=== PATIENT | male | born 1965 | race Caucasian/White ===

== ENCOUNTER 2017-10-12 13:09 | Outpatient (CLI) | payer OTHER ==
[2017-10-12 14:24] LABS: PTT 26.8 SEC (22.9-36.1); Prothrombin Time 11.9 SEC (12.0-14.7)
[2017-10-12 14:33] LABS: Mean Platelet Volume 7.2 fL (7.4-10.4); Red Blood Cell (RBC) Count 5.12 mill/uL (4.70-6.10); White Blood Cell (WBC) Count 4.2 thou/uL (4.8-10.8)
[2017-10-12 14:40] LABS: Anion Gap 27 mmol/L (10-20); BUN (Urea Nitrogen) 12 mg/dL (8.4-25.7); Calc. Creatinine Clearance 0 mL/min (70-130); Calcium 9.6 mg/dL (7.8-10.44); Carbon Dioxide 9 mmol/L (22-29); Chloride 94 mmol/L (98-107); Estimated GFR-MDRD 77
--- NOTE | 2017-10-13 07:34 | EKG ---
Test Reason : Blood Pressure : / mmHG Vent. Rate : 092 BPM Atrial Rate : 092 BPM P-R Int : 154 ms QRS Dur : 084 ms QT Int : 372 ms P-R-T Axes : 031 026 -14 degrees QTc Int : 460 ms Normal sinus rhythm Low voltage QRS Cannot rule out Anterior infarct , age undetermined Nonspecific ST-T changes Abnormal ECG No previous ECGs available Confirmed by DR. Joseph SIBLEY ([id number]) on 10/13/2017 7:33:52 AM Referred By: BUD Confirmed By:DR. Joseph SIBLEY
== END 2017-10-12 13:10 | disposition home or self-care (01) ==
LOC: LABBT 13:09
PROVIDERS: ATTEND Orthopaedic Surgery
DX: Z01.818 Encounter for other preprocedural examination (principal); M16.12 Unilateral primary osteoarthritis, left hip
CPT/HCPCS: 80048; 85027; 85610; 85730; 86850; 86900; 86901; 87081; 93005; 93010

== ENCOUNTER 2017-10-26 13:52 | Emergency (ER) | payer OTHER, SELFPAY ==
[2017-10-26 14:56] LABS: #Eosinphils 0.1 thou/uL (0.0-0.7); #Lymphocytes 0.8 thou/uL (1.20-3.40); #Monocytes 0.2 thou/uL (0.11-0.59); #Neutrophils 2.1 thou/uL (1.40-6.50); %Basophils 0.8 % (0.0-1.0); %Eosinophils 1.9 % (0.0-10.0); %Monocytes 7.4 % (0.0-10.0); %Neutrophils 65.9 % (42.0-75.0); Hemoglobin 14.5 g/dL (14.0-18.0); Mean Corpuscular HGB CONC 34.9 g/dL (32.0-36.0); Mean Corpuscular Hemoglobin 32.1 pg (27.0-31.0); Mean Corpuscular Volume 91.8 fl (80.0-94.0); Platelet Count 252 thou/uL (130-400); RBC Distribution Width 12.5 % (11.5-14.5); Red Blood Cell (RBC) Count 4.51 mill/uL (4.70-6.10); White Blood Cell (WBC) Count 3.2 thou/uL (4.8-10.8)
[2017-10-26 15:24] LABS: ALT (SGPT) 57 U/L (8-55); AST (SGOT) 15 U/L (5-34); Albumin 4.1 g/dL (3.5-5.0); Alkaline Phosphatase 89 U/L (40-150); Anion Gap 16 mmol/L (10-20); BUN (Urea Nitrogen) 14 mg/dL (8.4-25.7); Bilirubin, Total 0.7 mg/dL (0.2-1.2); Calc. Creatinine Clearance 0 mL/min (70-130); Calcium 10.1 mg/dL (7.8-10.44); Carbon Dioxide 20 mmol/L (22-29); Chloride 97 mmol/L (98-107); Estimated GFR-MDRD 90; Globulin 3.7 g/dL (2.4-3.5); Glucose 369 mg/dL (70-105); Potassium 4.3 mmol/L (3.5-5.1); Protein, Total 7.8 g/dL (6.0-8.3); Sodium 129 mmol/L (136-145)
[2017-10-26 15:33] LABS: Bilirubin Negative (Negative); Blood, Urine Negative (Negative); Clarity CLEAR (Clear); Glucose, Urine (Dipstick) >=1000 mg/dL (Negative); Leukocyte Negative (Negative); Nitrite Negative (Negative); Protein, Urine (Dipstick) Trace mg/dL (Neg-Trace); Specific Gravity, Urine 1.043 (1.002-1.036); Urobilinogen 0.2 mg/dL (0.2-1.0)
[2017-10-26 15:50] LABS: Base Excess-Venous -1.4 mmol/L (-30.0-30.0); Bicarbonate (HCO3v) 21.7 mmol/L (1.0-85.0); CO2 Tension (PvCO2) 31.6 mmHg (41.0-51.0); Calcium, Ionized 1.14 mmol/L (1.12-1.32); Hemoglobin - Calc 14.8 g/dL (12.0-18.0); O2 Tension (PvO2) 109.4 mmHg (35.0-45.0); Potassium 4.3 mmol/L (3.4-4.7); T. Carbon Dioxide 22.7 mmol/L (1.0-85.0); pH (Venous) 7.445 (7.35-7.45); vO2 Saturation-calc 98.5 % (0.0-100.0)
== END 2017-10-26 16:55 | disposition home or self-care (01) ==
LOC: ERS 13:52
DX: R73.9 Hyperglycemia, unspecified (principal); Z79.899 Other long term (current) drug therapy
CPT/HCPCS: 36416; 80053; 81003; 82330; 82803; 85025; 96360

== ENCOUNTER 2018-04-21 06:12 | Day surgery (SDC) | payer OTHER, SELFPAY ==
[2018-04-17 16:40] VITALS: BMI 30.9
[2018-04-21] MEDS ORDERED: HOLD HYPOGLYCEMIC MEDS AM OF CATH FS SCH (06:30)
[2018-04-21] MEDS ORDERED: Diazepam 5 MG TAB PO SCH (06:30)
[2018-04-21] MEDS ORDERED: Lidocaine 1% (PF) 30 ML VIAL ONE (06:39)
[2018-04-21 06:51] LABS: #Eosinphils 0.1 thou/uL (0.0-0.7); #Lymphocytes 1.5 thou/uL (1.20-3.40); #Monocytes 0.5 thou/uL (0.11-0.59); #Neutrophils 4.1 thou/uL (1.40-6.50); %Basophils 0.1 % (0.0-1.0); %Eosinophils 2.1 % (0.0-10.0); %Lymphocytes 24.2 % (21.0-51.0); %Monocytes 7.8 % (0.0-10.0); %Neutrophils 65.8 % (42.0-75.0); Hemoglobin 14.1 g/dL (14.0-18.0); Mean Corpuscular HGB CONC 34.4 g/dL (32.0-36.0); Mean Corpuscular Hemoglobin 30.4 pg (27.0-31.0); Mean Corpuscular Volume 88.2 fL (78.0-98.0); Platelet Count 245 thou/uL (130-400); Red Blood Cell (RBC) Count 4.63 mill/uL (4.70-6.10); White Blood Cell (WBC) Count 6.2 thou/uL (4.8-10.8)
[2018-04-21] MEDS ORDERED: Dextrose 50% Abboject 50 ML SYRINGE ONE (06:55)
[2018-04-21] MEDS ORDERED: Diazepam 5 MG TAB ONE (06:55)
[2018-04-21 07:08] LABS: PTT 30.5 SEC (22.9-36.1); Prothrombin Time 13.5 SEC (12.0-14.7)
[2018-04-21 07:14] LABS: ALT (SGPT) 22 U/L (8-55); AST (SGOT) 16 U/L (5-34); Albumin 4.2 g/dL (3.5-5.0); Alkaline Phosphatase 63 U/L (40-150); Anion Gap 12 mmol/L (10-20); BUN (Urea Nitrogen) 20 mg/dL (8.4-25.7); Calc. Creatinine Clearance 156 mL/min (70-130); Calcium 9.2 mg/dL (7.8-10.44); Carbon Dioxide 22 mmol/L (22-29); Cardiac Risk 5.6 (Less than 4.5); Chloride 106 mmol/L (98-107); Cholesterol 196 mg/dl (< 200 Desired); Estimated GFR-MDRD Greater than 90; Globulin 3.2 g/dL (2.4-3.5); Glucose 109 mg/dL (70-105); HDL Cholesterol 35 mg/dL (>60 Neg Risk); LDL Cholesterol, Calculated 139 mg/dL; Potassium 3.8 mmol/L (3.5-5.1); Protein, Total 7.4 g/dL (6.0-8.3); Sodium 136 mmol/L (136-145); Triglycerides 109 mg/dL (Less than 150)
[2018-04-21] MEDS ORDERED: Midazolam HCl 2 mg/2 ml Vial ONE (08:08)
[2018-04-21] MEDS ORDERED: Acetaminophen/Codeine 30-300mg Tablet ONE ×2 (09:48)
--- NOTE | 2018-04-21 12:33 | DIS ---
HISTORY OF PRESENT ILLNESS: The patient is a pleasant 52-year-old gentleman who presented about pre operative evaluation. The patient underwent a Cardiolite stress test which revealed him to have a no rmal left ventricular ejection fraction 59% with possible inferior ischemia or prior to undergoing eid rgery. The patient was admitted for further evaluation. HOSPITAL COURSE: On 04/21/2018 the patient underwent a left heart catheterization. He was found to have normal left ventricular systolic function with estimated ejection fraction of 50-55%. The left anterior descending, left circumflex and right coronary artery were free of significant disease. Con sequently, the patient was felt to be at low risk for undergoing surgery. His discharge medications will include aspirin 81 daily, glipizide 5 daily, Naprosyn 500 b.i.d., tram adol 50 q.i.d., metformin 500 b.i.d. which will be held for 2 days.
--- NOTE | 2018-04-21 17:07 | EKG ---
Test Reason : PREOP Blood Pressure : / mmHG Vent. Rate : 081 BPM Atrial Rate : 081 BPM P-R Int : 166 ms QRS Dur : 082 ms QT Int : 414 ms P-R-T Axes : 032 016 022 degrees QTc Int : 480 ms Normal sinus rhythm Prolonged QT Abnormal ECG When compared with ECG of 12-OCT-2017 14:04, Nonspecific T wave abnormality no longer evident in Lateral leads Confirmed by DR. Joseph SIBLEY ([id number]) on 04/21/2018 5:06:35 PM Referred By: SOURAV Confirmed By:DR. Joseph SIBLEY
[2018-04-21] MEDS ORDERED: DC ENOXAPARIN NIGHT BEFORE CATH FS SCH (22:00)
== END 2018-04-21 13:10 | disposition home or self-care (01) ==
LOC: CCL 06:12 → EDSTATUS 16:14
PROVIDERS: ATTEND Internal Medicine Cardiovascular Disease
DX: R94.39 Abnormal result of other cardiovascular function study (principal)
CPT/HCPCS: 80053; 80061; 85025; 85610; 93005; 93010; 93458; 99152; C1769; J1644; J2001; J2250

== ENCOUNTER 2018-06-01 09:18 | Outpatient (CLI) | payer OTHER ==
[2018-06-01 10:14] LABS: Hemoglobin 16.3 g/dL (14.0-18.0); Mean Corpuscular HGB CONC 35.4 g/dL (32.0-36.0); Mean Corpuscular Hemoglobin 31.1 pg (27.0-31.0); Mean Corpuscular Volume 87.9 fL (78.0-98.0); Mean Platelet Volume 5.7 fL (7.4-10.4); Platelet Count 269 thou/uL (130-400); RBC Distribution Width 13.1 % (11.5-14.5); Red Blood Cell (RBC) Count 5.24 mill/uL (4.70-6.10); White Blood Cell (WBC) Count 11.3 thou/uL (4.8-10.8)
[2018-06-01 10:21] LABS: INR-International Normal Ratio 0.9; Prothrombin Time 11.9 SEC (12.0-14.7)
[2018-06-01 10:31] LABS: Anion Gap 15 mmol/L (10-20); BUN (Urea Nitrogen) 24 mg/dL (8.4-25.7); Calc. Creatinine Clearance 0 mL/min (70-130); Calcium 9.9 mg/dL (7.8-10.44); Carbon Dioxide 22 mmol/L (22-29); Chloride 102 mmol/L (98-107); Estimated GFR-MDRD Greater than 90; Glucose 117 mg/dL (70-105); Potassium 4.3 mmol/L (3.5-5.1); Sodium 135 mmol/L (136-145)
--- NOTE | 2018-06-02 06:12 | EKG ---
Test Reason : Blood Pressure : / mmHG Vent. Rate : 074 BPM Atrial Rate : 074 BPM P-R Int : 138 ms QRS Dur : 078 ms QT Int : 388 ms P-R-T Axes : 049 077 048 degrees QTc Int : 430 ms Normal sinus rhythm Anteroseptal infarct , age undetermined Abnormal ECG When compared with ECG of 21-APR-2018 06:51, Anteroseptal infarct is now Present /vs poor R wave progression. Confirmed by TATY WALLS ([id number]) on 06/02/2018 6:11:52 AM Referred By: BUD Confirmed By:TATY WALLS
== END 2018-06-01 09:19 | disposition home or self-care (01) ==
LOC: LABBT 09:18
PROVIDERS: ATTEND Orthopaedic Surgery
DX: Z01.818 Encounter for other preprocedural examination (principal); M16.12 Unilateral primary osteoarthritis, left hip
CPT/HCPCS: 80048; 85027; 85610; 86850; 86900; 86901; 87081; 93005; 93010

== ENCOUNTER 2018-06-01 14:00 | Inpatient (IN) | payer OTHER ==
[2018-06-01 09:35] VITALS: BMI 30.9
[2018-06-06] MEDS ORDERED: CEFAZOLIN/Water 2 GM/20 ML SYRINGE ONE (10:06)
[2018-06-06] MEDS ORDERED: Neomycin-Polymyxin 1 ML AMP ONE (11:26)
[2018-06-06] MEDS ORDERED: Midazolam HCl 2 mg/2 ml Vial ONE (11:41)
[2018-06-06] MEDS ORDERED: Fentanyl 100 MCG/2 ML VIAL ONE ×3 (11:41→12:47)
[2018-06-06] MEDS ORDERED: Bupivacaine/Epinephrine 0.25% 30 ML VIAL ONE (12:10)
[2018-06-06] MEDS ORDERED: diphenhydrAMINE 25 MG CAP PO PRN ×2 (12:15→13:56)
[2018-06-06] MEDS ORDERED: diphenhydrAMINE 50 MG/ML VIAL IM PRN (12:15)
[2018-06-06] MEDS ORDERED: Naloxone HCl 0.4 mg/ml Vial IV PRN (12:15)
[2018-06-06] MEDS ORDERED: Zolpidem Tartrate 5 MG TAB PO PRN ×2 (12:15→13:56)
[2018-06-06] MEDS ORDERED: Ondansetron HCl/PF 4 MG/2 ML Vial IVP PRN ×3 (12:15→13:57)
[2018-06-06] MEDS ORDERED: Hydrocerin (Eucerin) Cream 120 gm Jar TOP PRN (12:15)
[2018-06-06] MEDS ORDERED: Bupivacaine 0.25% 10 ML VIAL EPIDURAL PRN (12:15)
[2018-06-06] MEDS ORDERED: fentaNYL Citrate/PF 1,250 MCG, Bupivacaine 25 ML in Sodium Chloride 0.9% 250 ML 200 ML EPIDURAL SCH (12:15)
[2018-06-06] MEDS ORDERED: diphenhydrAMINE 50 MG/ML VIAL IVP PRN (12:15)
[2018-06-06] MEDS ORDERED: Naloxone HCl 0.4 mg/ml Vial IVP PRN (12:15)
[2018-06-06] MEDS ORDERED: Promethazine HCl 25 MG/ML VIAL IM PRN ×3 (12:15→13:57)
[2018-06-06] MEDS ORDERED: Promethazine HCl 25 MG SUPP PR PRN (12:15)
[2018-06-06] MEDS ORDERED: Acetaminophen 325 MG TAB PO PRN (13:56)
[2018-06-06] MEDS ORDERED: traMADol HCl 50 MG TAB PO PRN (13:56)
[2018-06-06] MEDS ORDERED: HYDROcodone/Acetaminophen 10/325 mg Tablet PO PRN ×2 (13:56)
[2018-06-06] MEDS ORDERED: Morphine 4 MG/ML VIAL SLOW IVP PRN (13:56)
[2018-06-06] MEDS ORDERED: Promethazine HCl 25 MG/ML VIAL SLOW IVP PRN (13:57)
[2018-06-06] MEDS ORDERED: PHENYLEPHRINE-NS 100 MCG/ML 10 ML SYRINGE ONE (13:59)
[2018-06-06] MEDS ORDERED: PROPOFOL 200 MG/20 ML VIAL ONE (13:59)
[2018-06-06] MEDS ORDERED: Ondansetron HCl/PF 4 MG/2 ML Vial ONE (13:59)
[2018-06-06] MEDS ORDERED: Glycopyrrolate 0.2 MG/ML 5 ML SYRINGE ONE (13:59)
--- NOTE | 2018-06-06 14:25 | OP ---
DATE OF OPERATION: 06/06/2018 PREOPERATIVE DIAGNOSIS: Severe arthritis of the left hip. POSTOPERATIVE DIAGNOSIS: Severe arthritis of the left hip. PROCEDURE: Left total hip replacement. SURGEON: Valentín Llamas M.D. ANESTHESIA: General. TECHNIQUE: The patient was given an indwelling epidural catheter prior to surgery. He was given pre operative IV antibiotics, taken to the operating room and placed in supine position. Satisfactory ge neral anesthesia was performed. The patient was then placed in the right lateral decubitus position. The left hip and lower extremity were then sterilely prepped and draped in usual fashion. A longit udinal incision was made over the lateral aspect of the hip, centered over the greater trochanter. I ncision was approximately 8 inches in length. Anteromedial approach was made to the hip joint. Ante rior capsule was excised. Posterior capsule was incised. The femoral neck was cut with an oscillati ng saw and then removed with an osteotome. The femoral head had significant deformity, was very flat tened and had no articular cartilage and large osteophytes. There were large osteophytes on the acet abulum. The soft tissue was cleaned from around the acetabulum. Rongeur was used to remove most of the osteophytes and the acetabulum was then sequentially reamed up to 54 mm. A [place] 3-hole 56 mm acetabular shell was then impacted into the acetabulum after the acetabulum was copiously irri gated with antibiotic solution and then bone graft was placed. The acetabulum was very secure. A 6. 5 cancellous bone screw was then placed to also help secure the acetabular shell even more. He had v tavon good fixation. A +4, 10-degree acetabular liner was then impacted in place and attention was the n turned to the proximal femur. A box osteotome was utilized and then hand Charnley reamer and then the canal was sequentially reamed up to 16 mm. It was then sequentially rasped up to 16 mm and calca r reamer was utilized. Different trials were used. The ultimate trial was a +1.5 neck with a 36 mm head. This allowed for good range of motion of the hip and good stability. The trial was removed fr om the proximal femur. The hip area was then copiously irrigated again with antibiotic solution and the high-speed pipelayer. The cementless [place] femoral stem size 16 standard collar was impacted in to the proximal femur with excellent fit. The +1.5 neck with 36 mm femoral head was impacted over th e [place] taper and the hip joint was then reduced, again placed through a range of motion and is very stable. The wound again was irrigated and closed using #2 Vicryl for the anterior abductor muscles a nd then #2 Vicryl for the iliotibial band, 0 Vicryl for the fat and subcutaneous tissue and the skin was closed with skin long. Sterile dressing was applied. The patient was then awakened, extubate d and transferred to recovery room in stable condition. ESTIMATED BLOOD LOSS: 200 mL COMPLICATIONS: None.
--- NOTE | 2018-06-06 15:00 | RAD ---
LEFT HIP TWO VIEWS: History: Left hip surgery. FINDINGS: Total hip prosthesis is in place without perihardware lucency. No acute fracture, dislocation, or agg ressive osseous erosions. Skin long and soft tissue gas. IMPRESSION: Left hip prosthesis is in good radiographic position. POS: [facility]
[2018-06-06] MEDS ORDERED: Albumin 5% 500 ML ONE (15:09)
[2018-06-06] MEDS ORDERED: CEFAZOLIN/Water 2 GM/20 ML SYRINGE SLOW IVP SCH (18:00)
[2018-06-06] MEDS: Ketorolac Tromethamine 30 MG/ML VIAL IVP SCH ×3 (18:38→22:21)
[2018-06-06] MEDS: metFORMIN 500 MG TAB PO SCH (18:45)
[2018-06-06] MEDS: Ferrous Gluconate 324 MG TAB PO SCH (20:37)
[2018-06-06] MEDS: CEFAZOLIN/Water 2 GM/20 ML SYRINGE SLOW IVP SCH (20:37)
[2018-06-06] MEDS: Aspirin 325 MG TAB PO SCH (20:37)
[2018-06-06] MEDS: Senokot S 8.6-50 MG TAB PO SCH (20:38)
[2018-06-07] MEDS: CEFAZOLIN/Water 2 GM/20 ML SYRINGE SLOW IVP SCH (04:04)
[2018-06-07 04:34] LABS: Hemoglobin 11.4 g/dL (14.0-18.0); Mean Corpuscular HGB CONC 35.6 g/dL (32.0-36.0); Mean Platelet Volume 5.8 fL (7.4-10.4); Platelet Count 191 thou/uL (130-400); RBC Distribution Width 12.8 % (11.5-14.5); Red Blood Cell (RBC) Count 3.56 mill/uL (4.70-6.10); White Blood Cell (WBC) Count 6.6 thou/uL (4.8-10.8)
[2018-06-07] MEDS: Ketorolac Tromethamine 30 MG/ML VIAL IVP SCH ×3 (06:11→22:09)
[2018-06-07] MEDS ORDERED: Aspirin 81 mg Enteric Coated Tablet PO SCH (09:00)
[2018-06-07] MEDS: glipiZIDE 5 MG TAB PO SCH (09:59)
[2018-06-07] MEDS: Multivitamin W/ Minerals 1 TAB PO SCH (09:59)
[2018-06-07] MEDS: Ferrous Gluconate 324 MG TAB PO SCH ×2 (09:59→20:57)
[2018-06-07] MEDS: Senokot S 8.6-50 MG TAB PO SCH ×2 (09:59→20:57)
[2018-06-07] MEDS: metFORMIN 500 MG TAB PO SCH ×2 (09:59→18:00)
[2018-06-07] MEDS: Aspirin 325 MG TAB PO SCH ×2 (09:59→20:57)
[2018-06-07] MEDS ORDERED: Dextrose 50% Abboject 50 ML SYRINGE SLOW IVP PRN (12:54)
[2018-06-07] MEDS ORDERED: Dextrose 5% in Water 1,000 ML IV PRN (12:54)
[2018-06-07] MEDS ORDERED: HumaLOG 300 UNITS/3 ML VIAL SC PRN ×2 (12:54)
--- NOTE | 2018-06-07 14:57 | PDOC.PN ---
- Subjective Encounter Start Date: 06/07/18 Encounter Start Time: 13:35 follow up for DM2, hx CAD, HLD, depression, s/p left GRACE, POD1 walking well, epidural still in. no N/V/D/C, no CP or sOB, eating well. No f/C, no CP or sOB All systems reviewed and neg x as above - Objective MAR Reviewed: Yes Vital Signs & Weight: Vital Signs (12 hours) Temp Pulse Resp BP BP Pulse Ox 06/07/18 13:58 98.4 F 82 18 104/62 96 06/07/18 08:40 103/62 06/07/18 08:00 99.3 F 75 22 H 95 06/07/18 07:45 99.3 F 75 22 H 90/55 L 94 L 06/07/18 07:00 95 06/07/18 04:00 97.7 F 74 16 91/54 L 95 Weight Admit Weight 228 lb Weight 228 lb I&O: 06/06/18 06/07/18 06/08/18 06:59 06:59 06:59 Output Total 810 Balance -810 Result Diagrams: 06/07/18 03:41 Additional Labs: Accuchecks 06/07/18 06/06/18 06:41 20:51 POC Glucose 111 H 118 H Phys Exam - Physical Examination Constitutional: NAD HEENT: PERRLA, moist MMs, sclera anicteric, oral pharynx no lesions Neck: no nodes, no JVD, supple, full ROM Respiratory: no wheezing, no rales, no rhonchi, clear to auscultation bilateral Cardiovascular: RRR, no significant murmur, no rub Gastrointestinal: soft, non-tender, no distention, positive bowel sounds Musculoskeletal: no edema, pulses present Neurological: non-focal, normal sensation, moves all 4 limbs Lymphatic: no nodes Psychiatric: normal affect, A&O x 3 Skin: no rash, normal turgor, cap refill <2 seconds Dx/Plan (1) DM2 (diabetes mellitus, type 2) Status: Chronic Qualifiers: Diabetes mellitus fdc insulin use: without terminal operations manager use Diabetes mellitus complication status: without complication Qualified Code(s): E11.9 - Type 2 diabetes mellitus without complications (2) HLD (hyperlipidemia) Code(s): E78.5 - HYPERLIPIDEMIA, UNSPECIFIED Status: Chronic Qualifiers: Hyperlipidemia type: unspecified Qualified Code(s): E78.5 - Hyperlipidemia , unspecified (3) CAD (coronary artery disease), [place] coronary artery Code(s): I25.10 - ATHSCL HEART DISEASE OF [place] CORONARY ARTERY W/O ANG PCTRS Status: Chronic Qualifiers: [place] vs. transplanted heart: [place] heart Associated angina: without angina Qualified Code(s): I25.10 - Atherosclerotic heart disease of [place] coronary artery without angina pectoris (4) Depression Code(s): F32.9 - MAJOR DEPRESSIVE DISORDER, SINGLE EPISODE, UNSPECIFIED Status : Chronic Qualifiers: Depression Type: unspecified Qualified Code(s): F32.9 - Major depressive disorder, single episode, unspecified - Plan cont current plan of care, PT/OT, social work specialist, out of bed/ambulate * .
--- NOTE | 2018-06-07 23:43 | PRG ---
DATE OF SERVICE: 06/07/2018 SUBJECTIVE: Mr. Murphy is 1-day status post left total hip replacement. The patient states that he i s doing well. He has fairly good pain control with the epidural and p.o. pain pills. OBJECTIVE: Patient's maximum temperature is 99.3. His vital signs have been stable. LABORATORY DATA: Hemoglobin this morning 11.4, hematocrit 32.1. The left lower extremity is neurovascularly intact. Patient will continue with PT working on strengthening, range of motion and again stability with his walker probably be discharged tomorrow. DISCHARGE MEDICATIONS: We will include [place] 10 one every 6 hours as needed for pain, #60 with no re fills. He also take aspirin 1 a day for DVT prophylaxis. Follow up with my office in 2 weeks.
[2018-06-08 05:30] LABS: #Eosinphils 0.1 thou/uL (0.0-0.7); #Lymphocytes 1.2 thou/uL (1.20-3.40); #Monocytes 0.6 thou/uL (0.11-0.59); #Neutrophils 5.5 thou/uL (1.40-6.50); %Eosinophils 1.1 % (0.0-10.0); %Lymphocytes 15.7 % (21.0-51.0); %Monocytes 8.6 % (0.0-10.0); %Neutrophils 74.7 % (42.0-75.0); Mean Corpuscular HGB CONC 33.5 g/dL (32.0-36.0); Mean Corpuscular Hemoglobin 30.9 pg (27.0-31.0); Mean Corpuscular Volume 92.2 fL (78.0-98.0); Mean Platelet Volume 6.2 fL (7.4-10.4); Platelet Count 158 thou/uL (130-400); RBC Distribution Width 12.8 % (11.5-14.5); Red Blood Cell (RBC) Count 3.55 mill/uL (4.70-6.10); White Blood Cell (WBC) Count 7.4 thou/uL (4.8-10.8)
[2018-06-08 05:34] LABS: Anion Gap 10 mmol/L (10-20); BUN (Urea Nitrogen) 15 mg/dL (8.4-25.7); Calc. Creatinine Clearance 164 mL/min (70-130); Calcium 7.9 mg/dL (7.8-10.44); Carbon Dioxide 23 mmol/L (22-29); Chloride 106 mmol/L (98-107); Estimated GFR-MDRD Greater than 90; Glucose 114 mg/dL (70-105); Potassium 4.4 mmol/L (3.5-5.1); Sodium 135 mmol/L (136-145)
[2018-06-08] MEDS: Ketorolac Tromethamine 30 MG/ML VIAL IVP SCH ×2 (05:38→14:09)
[2018-06-08] MEDS: Multivitamin W/ Minerals 1 TAB PO SCH (08:44)
[2018-06-08] MEDS: glipiZIDE 5 MG TAB PO SCH (08:44)
[2018-06-08] MEDS: Senokot S 8.6-50 MG TAB PO SCH (08:44)
[2018-06-08] MEDS: metFORMIN 500 MG TAB PO SCH (08:44)
[2018-06-08] MEDS: Ferrous Gluconate 324 MG TAB PO SCH (08:44)
[2018-06-08] MEDS: Aspirin 325 MG TAB PO SCH (08:44)
[2018-06-08 10:12] VITALS: TEMP 98.3
[2018-06-08] MEDS ORDERED: HYDROcodone/Acetaminophen 10/325 mg Tablet PO PRN ×2 (10:46)
--- NOTE | 2018-06-08 12:28 | DIS ---
DATE OF ADMISSION: 06/06/2018 DATE OF DISCHARGE: 06/08/2018 HISTORY OF PRESENT ILLNESS: Please see admission history and physical. HOSPITAL COURSE: The patient was worked up medically prior to admission, found to be stable for surg tavon. He was given perioperative IV antibiotics and under general anesthetic, the patient underwent a left total hip replacement. The patient had an indwelling epidural catheter, which provided excelle nt pain relief. The patient remained afebrile. Vital signs remained stable. His postoperative hemo globin the day after surgery was 11.4 and on postoperative day #2 on 06/08/2018, it was 11.0. Left l ower extremity remained neurovascularly intact. Physical therapy and occupational therapy worked wit h the patient. By discharge, he was able to independently get out of bed and ambulate with a walker. He is able to fully weightbear as tolerated on the left lower extremity. DISCHARGE DIAGNOSIS: Severe arthritis of left hip requiring total hip replacement. DISCHARGE MEDICATIONS: [place] 10 one every 4-6 hours as needed for pain, #60. PLAN: Follow up in my office in 2 weeks.
[2018-06-08 12:40] VITALS: BP 110/66
--- NOTE | 2018-06-08 15:31 | PDOC.PN ---
- Subjective Encounter Start Date: 06/08/18 Encounter Start Time: 09:10 followup for HTn, DM2, HLD. pain controlled, ambulating well, going home no F/C, no N/V/d/C, no CP or SOB all systems reviewed adn neg x as above - Objective MAR Reviewed: Yes Vital Signs & Weight: Vital Signs (12 hours) Temp Pulse Resp BP BP Pulse Ox 06/08/18 12:35 98.3 F 77 18 110/66 95 06/08/18 09:40 98.3 F 74 14 99/60 94 L 06/08/18 08:45 108/65 06/08/18 08:00 98.1 F 77 18 06/08/18 05:34 98.1 F 77 18 119/70 96 Weight Admit Weight 228 lb Weight 228 lb I&O: 06/07/18 06/08/18 06/09/18 06:59 06:59 06:59 Intake Total 1250 Output Total 810 1600 Balance -810 -350 Result Diagrams: 06/08/18 04:31 06/08/18 04:31 Additional Labs: Accuchecks 06/08/18 06/08/18 06/07/18 12:34 05:54 20:56 POC Glucose 97 117 H 126 H 06/07/18 16:09 POC Glucose 107 Phys Exam - Physical Examination Constitutional: NAD HEENT: PERRLA, moist MMs, sclera anicteric, oral pharynx no lesions Neck: no nodes, no JVD, supple, full ROM Respiratory: no wheezing, no rales, no rhonchi, clear to auscultation bilateral Cardiovascular: RRR, no significant murmur, no rub Gastrointestinal: soft, non-tender, no distention, positive bowel sounds Musculoskeletal: no edema, pulses present Neurological: non-focal, normal sensation, moves all 4 limbs Lymphatic: no nodes Psychiatric: normal affect, A&O x 3 Skin: no rash, normal turgor, cap refill <2 seconds Dx/Plan (1) DM2 (diabetes mellitus, type 2) Status: Chronic Qualifiers: Diabetes mellitus bed placement coordinator insulin use: without bed placement coordinator use Diabetes mellitus complication status: without complication Qualified Code(s): E11.9 - Type 2 diabetes mellitus without complications (2) HLD (hyperlipidemia) Code(s): E78.5 - HYPERLIPIDEMIA, UNSPECIFIED Status: Chronic Qualifiers: Hyperlipidemia type: unspecified Qualified Code(s): E78.5 - Hyperlipidemia , unspecified (3) CAD (coronary artery disease), [place] coronary artery Code(s): I25.10 - ATHSCL HEART DISEASE OF [place] CORONARY ARTERY W/O ANG PCTRS Status: Chronic Qualifiers: [place] vs. transplanted heart: [place] heart Associated angina: without angina Qualified Code(s): I25.10 - Atherosclerotic heart disease of [place] coronary artery without angina pectoris (4) Depression Code(s): F32.9 - MAJOR DEPRESSIVE DISORDER, SINGLE EPISODE, UNSPECIFIED Status : Chronic Qualifiers: Depression Type: unspecified Qualified Code(s): F32.9 - Major depressive disorder, single episode, unspecified - Plan * .
[2018-06-08] MEDS ORDERED: Naproxen 500 MG TAB PO SCH (17:00)
== END 2018-06-08 14:34 | disposition home or self-care (01) | DRG 470 ==
LOC: SURG A 06-06 09:39 → SJJU 06-06 16:04
PROVIDERS: ADMIT Orthopaedic Surgery; ATTEND Orthopaedic Surgery
PROC: 0SRB0JA Replacement of Left Hip Joint with Synthetic Substitute, Uncemented, Open Approach (ICD-10-PCS; principal; 2018-06-06)
DX: M16.12 Unilateral primary osteoarthritis, left hip (principal); E11.9 Type 2 diabetes mellitus without complications; E78.5 Hyperlipidemia, unspecified; I25.10 Atherosclerotic heart disease of native coronary artery without angina pectoris; F32.9 Major depressive disorder, single episode, unspecified
CPT/HCPCS: 36415; 36416; 80048; 83735; 85027; C1776; G8978-GP-CL; G8979-GP-CJ; G8987-GO-CK; G8988-GO-CI; J1885; J2250; J2405; J2704; J3010; J3490; J7050; P9045

== ENCOUNTER 2022-02-06 02:01 | Observation (INO) | payer SELFPAY ==
[2022-02-06 02:46] LABS: #Eosinphils 0.2 thou/uL (0.0-0.7); #Lymphocytes 1.2 thou/uL (1.20-3.40); #Monocytes 0.4 thou/uL (0.11-0.59); #Neutrophils 2.5 thou/uL (1.40-6.50); %Basophils 0.7 % (0.0-1.0); %Eosinophils 3.8 % (0.0-10.0); %Lymphocytes 28.1 % (21.0-51.0); %Monocytes 9.3 % (0.0-10.0); %Neutrophils 58.1 % (42.0-75.0); Hemoglobin 13.4 g/dL (14.0-18.0); Mean Corpuscular HGB CONC 35.6 g/dL (32.0-36.0); Mean Corpuscular Volume 92.6 fL (78.0-98.0); Mean Platelet Volume 6.3 fL (7.4-10.4); Platelet Count 180 thou/uL (130-400); RBC Distribution Width 12.4 % (11.5-14.5); Red Blood Cell (RBC) Count 4.06 mill/uL (4.70-6.10); White Blood Cell (WBC) Count 4.4 thou/uL (4.8-10.8)
[2022-02-06 03:10] LABS: ALT (SGPT) 89 U/L (8-55); AST (SGOT) 44 U/L (5-34); Albumin 3.8 g/dL (3.5-5.0); Alkaline Phosphatase 77 U/L (40-110); Anion Gap 14 mmol/L (10-20); BUN (Urea Nitrogen) 20 mg/dL (8.4-25.7); Bilirubin, Total 0.4 mg/dL (0.2-1.2); Calc. Creatinine Clearance 0 mL/min (70-130); Calcium 8.5 mg/dL (7.8-10.44); Carbon Dioxide 19 mmol/L (22-29); Chloride 107 mmol/L (98-107); Globulin 2.9 g/dL (2.4-3.5); Glucose 337 mg/dL (70-105); Potassium 4.1 mmol/L (3.5-5.1); Protein, Total 6.7 g/dL (6.0-8.3); Sodium 136 mmol/L (136-145)
[2022-02-06] MEDS ORDERED: Furosemide 40 MG/4 ML VIAL ONE (03:44)
[2022-02-06] MEDS ORDERED: Acetaminophen 325 MG TAB PO PRN (03:50)
[2022-02-06] MEDS ORDERED: Ondansetron PF 4 MG/2 ML Vial IVP PRN (03:50)
[2022-02-06] MEDS ORDERED: Dextrose 5% in Water 1,000 ML IV PRN (03:53)
[2022-02-06] MEDS ORDERED: Dextrose 50% Abboject 50 ML SYRINGE SLOW IVP PRN (03:53)
[2022-02-06] MEDS ORDERED: HumaLOG 300 UNITS/3 ML VIAL SC PRN (03:53)
[2022-02-06 05:01] VITALS: BMI 38.2
[2022-02-06] MEDS: HumaLOG 300 UNITS/3 ML VIAL SC PRN ×2 (05:25→17:07)
[2022-02-06 05:45] LABS: SARS-CoV-2 NAA Rapid Test Not Detected (NotDetected)
[2022-02-06] MEDS: Levothyroxine Sodium 25 MCG TAB PO SCH (06:44)
[2022-02-06] MEDS: traMADol HCl 50 MG TAB PO PRN ×2 (06:46→20:52)
[2022-02-06 07:07] LABS: Hemoglobin A1c 9.1 % (4.0-6.0)
[2022-02-06] MEDS: Atorvastatin Calcium 20 MG TAB PO SCH (10:31)
[2022-02-06] MEDS: Enoxaparin Sodium 40 MG/0.4 ML SYRINGE SC SCH (10:31)
[2022-02-06] MEDS: Furosemide 20 MG/2 ML VIAL SLOW IVP SCH (14:43)
[2022-02-07 05:23] LABS: #Eosinphils 0.2 thou/uL (0.0-0.7); #Lymphocytes 1.4 thou/uL (1.20-3.40); #Monocytes 0.5 thou/uL (0.11-0.59); #Neutrophils 2.5 thou/uL (1.40-6.50); %Basophils 0.3 % (0.0-1.0); %Eosinophils 4.6 % (0.0-10.0); %Lymphocytes 30.2 % (21.0-51.0); %Monocytes 10.9 % (0.0-10.0); Hemoglobin 14.3 g/dL (14.0-18.0); Mean Corpuscular Hemoglobin 32.6 pg (27.0-31.0); Mean Corpuscular Volume 93.2 fL (78.0-98.0); Mean Platelet Volume 6.1 fL (7.4-10.4); Platelet Count 184 thou/uL (130-400); RBC Distribution Width 12.4 % (11.5-14.5); White Blood Cell (WBC) Count 4.5 thou/uL (4.8-10.8)
[2022-02-07 05:42] LABS: Anion Gap 12 mmol/L (10-20); BUN (Urea Nitrogen) 14 mg/dL (8.4-25.7); Calc. Creatinine Clearance 142 mL/min (70-130); Calcium 8.8 mg/dL (7.8-10.44); Carbon Dioxide 26 mmol/L (22-29); Chloride 103 mmol/L (98-107); Glucose 230 mg/dL (70-105); Potassium 4.2 mmol/L (3.5-5.1); Sodium 137 mmol/L (136-145)
[2022-02-07 05:50] LABS: ALT (SGPT) 79 U/L (8-55); AST (SGOT) 28 U/L (5-34); Albumin 3.8 g/dL (3.5-5.0); Alkaline Phosphatase 65 U/L (40-110); Bilirubin, Direct 0.3 mg/dL (0.1-0.3); Bilirubin, Total 1.1 mg/dL (0.2-1.2); Protein, Total 6.7 g/dL (6.0-8.3)
[2022-02-07] MEDS: Levothyroxine Sodium 25 MCG TAB PO SCH (05:50)
[2022-02-07] MEDS: Furosemide 20 MG/2 ML VIAL SLOW IVP SCH (05:51)
[2022-02-07] MEDS: HumaLOG 300 UNITS/3 ML VIAL SC PRN ×2 (05:52→12:54)
[2022-02-07] MEDS: Atorvastatin Calcium 20 MG TAB PO SCH (08:46)
[2022-02-07] MEDS: Enoxaparin Sodium 40 MG/0.4 ML SYRINGE SC SCH (08:46)
[2022-02-07] MEDS: traMADol HCl 50 MG TAB PO PRN (10:11)
[2022-02-07 12:09] VITALS: BP 133/79; TEMP 97.8
[2022-02-08] MEDS ORDERED: Furosemide 40 MG TAB PO SCH (07:30)
== END 2022-02-07 15:20 | disposition home or self-care (01) ==
LOC: ERS 02:01 → 2SW 03:53
PROVIDERS: ADMIT Student in an Organized Health Care Education/Training Program; ATTEND Student in an Organized Health Care Education/Training Program
DX: I50.9 Heart failure, unspecified (principal); E11.65 Type 2 diabetes mellitus with hyperglycemia; E78.5 Hyperlipidemia, unspecified; E03.9 Hypothyroidism, unspecified; M19.90 Unspecified osteoarthritis, unspecified site; M41.84 Other forms of scoliosis, thoracic region; I07.1 Rheumatic tricuspid insufficiency; Z79.84 Long term (current) use of oral hypoglycemic drugs; Z79.890 Hormone replacement therapy; Z79.899 Other long term (current) drug therapy; Z20.822 Contact with and (suspected) exposure to COVID-19
CPT/HCPCS: 36415; 36416; 71045; 80048; 80053; 80076; 83036; 83880; 84443; 84484; 85025; 93005; 93306; 96372; 96374; 96376; G0378; J1650; J1815; J1940; U0002

== ENCOUNTER 2022-06-05 21:56 | Emergency (ER) | payer SELFPAY | END 2022-06-05 22:28 | disposition home or self-care (01) | LOC: ERS 21:56 | DX: K02.9 Dental caries, unspecified (principal); K03.2 Erosion of teeth | CPT/HCPCS: 99282 ==

== ENCOUNTER 2022-07-16 05:23 | Emergency (ER) | payer SELFPAY ==
[2022-07-16] MEDS ORDERED: Ketorolac Tromethamine 30 MG/ML VIAL ONE (05:59)
== END 2022-07-16 06:02 | disposition home or self-care (01) ==
LOC: ERS 05:23
DX: K02.9 Dental caries, unspecified (principal)
CPT/HCPCS: 96372; 99282; J1885